=== PATIENT | female | born 1975 | race Caucasian/White ===

== ENCOUNTER → 2023-08-29 08:49 | Outpatient (REF) | payer BC, SELFPAY | LOC: HWRAD 08:49 | PROVIDERS: ATTENDING PHYSICIAN Internal Medicine Critical Care Medicine; FAMILY PHYSICIAN Nurse Practitioner Adult Health | DX: R93.89 Abnormal findings on diagnostic imaging of other specified body structures (principal) | CPT/HCPCS: 71046 ==

== ENCOUNTER → 2024-04-29 15:50 | Outpatient (REF) | payer BC, SELFPAY | LOC: RCS 15:50 | PROVIDERS: ATTENDING PHYSICIAN Nurse Practitioner Adult Health | DX: R00.2 Palpitations (principal); I49.3 Ventricular premature depolarization; Z82.49 Family history of ischemic heart disease and other diseases of the circulatory system | CPT/HCPCS: 93306 ==

== ENCOUNTER → 2024-05-26 10:23 | Outpatient (REF) | payer BC, SELFPAY | LOC: RCS 10:23 | PROVIDERS: ATTENDING PHYSICIAN Internal Medicine Cardiovascular Disease; FAMILY PHYSICIAN Nurse Practitioner Adult Health | DX: I49.3 Ventricular premature depolarization (principal); R00.2 Palpitations | CPT/HCPCS: 93225; 93226 ==

== ENCOUNTER 2025-02-25 06:25 | Day surgery (SDC) | payer BC, SELFPAY | END 2025-02-25 14:35 | disposition home or self-care (01) | LOC: GI 06:25 | PROVIDERS: ATTENDING PHYSICIAN Specialist | DX: Z12.11 Encounter for screening for malignant neoplasm of colon (principal); D12.0 Benign neoplasm of cecum; D12.3 Benign neoplasm of transverse colon; K63.5 Polyp of colon; K57.30 Diverticulosis of large intestine without perforation or abscess without bleeding | CPT/HCPCS: 45385; 45380; 88305 ==